=== PATIENT | female | born 1945 | race Two or more races ===

== ENCOUNTER 2023-01-27 09:55 | Outpatient (CLI) | payer OTHER | END 2023-01-27 09:58 | disposition home or self-care (01) | LOC: RAD 09:55 | PROVIDERS: ATTEND Orthopaedic Surgery | DX: M25.552 Pain in left hip (principal); M79.652 Pain in left thigh ==

== ENCOUNTER 2023-02-23 08:48 | Emergency (ER) | payer OTHER ==
[~2023-02-23] VITALS: Ht 165.1 cm; Wt 68.0 kg
[2023-02-23] MEDS ORDERED: LOSARTAN POTASS50 MG PO (09:12)
[2023-02-23] MEDS ORDERED: HYDROCHLOROTH12.5 MG PO (09:13)
[2023-02-23] MEDS ORDERED: PRAMIPEXOLE E2.25 MG (09:14)
[2023-02-23] MEDS ORDERED: ECOTRIN81 MG (09:14)
[2023-02-23] MEDS ORDERED: LYRICA20 MG/1 ML (09:15)
== END 2023-02-23 14:35 | disposition home or self-care (01) ==
LOC: ER 08:48
DX: M16.12 Unilateral primary osteoarthritis, left hip (principal); M54.50 Low back pain, unspecified; Z88.6 Allergy status to analgesic agent; I10 Essential (primary) hypertension

== ENCOUNTER → 2023-02-25 07:13 | Outpatient (CLI) | payer OTHER ==
[~2023-02-25 07:13] MED LIST: ECOTRIN81 MG; HYDROCHLOROTH12.5 MG PO; LOSARTAN POTASS50 MG PO; LYRICA20 MG/1 ML; PRAMIPEXOLE E2.25 MG
== END | disposition home or self-care (01) ==
LOC: LAB 07:13
PROVIDERS: ATTEND Orthopaedic Surgery
DX: M85.9 Disorder of bone density and structure, unspecified (principal); E83.42 Hypomagnesemia; E56.1 Deficiency of vitamin K; E88.89 Other specified metabolic disorders; M81.8 Other osteoporosis without current pathological fracture

== ENCOUNTER 2023-08-03 06:40 | Emergency (ER) | payer OTHER ==
[~2023-08-03] VITALS: Ht 165.1 cm; Wt 68.9 kg
[~2023-08-03 06:40] MED LIST changes: +DICLOFENAC POTA50 MG PO
== END 2023-08-03 12:25 | disposition home or self-care (01) ==
LOC: ER 06:40
DX: M25.552 Pain in left hip (principal); I10 Essential (primary) hypertension; Z88.8 Allergy status to other drugs, medicaments and biological substances; M16.12 Unilateral primary osteoarthritis, left hip
CPT/HCPCS: 73503; 96372; 99284; J1885

== ENCOUNTER → 2023-08-11 06:36 | Outpatient (CLI) | payer OTHER ==
[2023-08-11 07:55] LABS: HEMATOCRIT 31.6 % (36.0-45.00); HEMOGLOBIN 10.1 g/dL (12.0-15.00); MEAN CELL VOLUME 89.2 fL (80.00-100.00); MEAN CORPUSCULAR HEMOGLOBIN 28.5 pg (27.00-32.0); MEAN CORPUSCULAR HGB CONC 31.9 g/dl (32.0-36.0); PLATELET COUNT 317 K/uL (150-450); RED BLOOD COUNT 3.54 M/uL (4.00-6.00); RED CELL DISTRIBUTION WIDTH 15.7 % (11.5-14.5)
[2023-08-11 08:20] LABS: ALBUMIN 3.6 gm/dL (3.4-5.0); CALCIUM 8.9 mg/dL (8.5-10.1); CREATININE SERUM 1.36 mg/dL (0.55-1.02); GFR 37.51; PHOSPHOROUS 2.7 mg/dL (2.5-4.9); POTASSIUM 4.1 mEq/L (3.5-5.1); URIC ACID 6.2 mg/dL (2.5-7.5)
[2023-08-11 08:33] LABS: CREATININE URINE 63.1 MG/DL; URINE PROT QUANT 24HR 5.9 MG/DL
[2023-08-11 08:45] LABS: CREATININE SERUM 1.36 mg/dL (0.6-1.0); URINE PROT QUANT 24 HR 91.45 MG/24HR (42-225)
[2023-08-11 09:45] LABS: PH,URINE 7.5 (5.0-8.0); URINE APPEARANCE Clear; URINE BILIRRUBIN Negative (NEGATIVE); URINE BLOOD Negative; URINE COLOR Yellow; URINE GLUCOSE Negative (NEGATIVE); URINE LEUKOCYTE Small; URINE NITRATE Negative; URINE PROTEIN Negative (NEGATIVE)
[2023-08-11 09:50] LABS: URINE BACTERIA 64.1 uL (0.0-1933); URINE EPITHELIAL CELLS 13.4 uL (0.0-38.8); URINE WBC 7.2 uL (0.0-23.2)
[2023-08-11 10:12] LABS: URINE RBC 1.7 uL (0.0-20.8)
== END | disposition home or self-care (01) ==
LOC: LAB 06:36
DX: E78.5 Hyperlipidemia, unspecified (principal); N18.30 Chronic kidney disease, stage 3 unspecified; E11.21 Type 2 diabetes mellitus with diabetic nephropathy; D63.1 Anemia in chronic kidney disease; N30.00 Acute cystitis without hematuria; E03.9 Hypothyroidism, unspecified; Z88.5 Allergy status to narcotic agent

== ENCOUNTER 2023-08-11 07:27 | Outpatient (CLI) | payer OTHER | END 2023-08-11 07:47 | disposition home or self-care (01) | LOC: RAD 07:27 | PROVIDERS: ATTEND Orthopaedic Surgery | DX: R10.9 Unspecified abdominal pain (principal); M16.12 Unilateral primary osteoarthritis, left hip; N18.30 Chronic kidney disease, stage 3 unspecified; R31.9 Hematuria, unspecified; Z88.5 Allergy status to narcotic agent | CPT/HCPCS: 73721 ==

== ENCOUNTER → 2023-08-23 08:24 | Outpatient (CLI) | payer OTHER ==
[2023-08-23 10:49] LABS: BILIRUBIN TOTAL 0.54 mg/dL (0.3-1.2); BILIRUBIN,CONJUGATED 0.2 mg/dL (0.0-0.2); BILIRUBIN,UNCONJUGATED 0.34 mg/dL (0.0-0.6); FERRITIN 45.2 NG/ML (8-252)
== END | disposition home or self-care (01) ==
LOC: LAB 08:24
PROVIDERS: ATTEND Orthopaedic Surgery
DX: E53.9 Vitamin B deficiency, unspecified (principal); Z88.5 Allergy status to narcotic agent

== ENCOUNTER 2023-10-21 09:26 | Outpatient (CLI) | payer OTHER | END 2023-10-21 09:28 | disposition home or self-care (01) | LOC: NUCLEAR 09:26 | PROVIDERS: ATTEND Orthopaedic Surgery | DX: I73.89 Other specified peripheral vascular diseases (principal) ==

== ENCOUNTER 2023-10-22 08:57 | Outpatient (CLI) | payer OTHER | END 2023-10-22 08:58 | disposition home or self-care (01) | LOC: NUCLEAR 08:57 | PROVIDERS: ATTEND Orthopaedic Surgery | DX: I87.2 Venous insufficiency (chronic) (peripheral) (principal) ==

== ENCOUNTER 2024-02-01 09:26 | Outpatient (CLI) | payer OTHER ==
[2024-02-01 10:42] LABS: URINE BILIRRUBIN Negative (NEGATIVE); URINE BLOOD Negative; URINE COLOR Yellow; URINE GLUCOSE Negative (NEGATIVE); URINE LEUKOCYTE Moderate; URINE NITRATE Negative; URINE PROTEIN Negative (NEGATIVE); URINE UROBILINOGEN 0.2 E.U./dl
[2024-02-01 10:44] LABS: HEMATOCRIT 28.1 % (36.0-45.00); MEAN CELL VOLUME 86.7 fL (80.00-100.00); MEAN CORPUSCULAR HGB CONC 33.9 g/dl (32.0-36.0); PLATELET COUNT 291 K/uL (150-450); RED BLOOD COUNT 3.24 M/uL (4.00-6.00); RED CELL DISTRIBUTION WIDTH 17.2 % (11.5-14.5)
[2024-02-01 10:46] LABS: URINE BACTERIA 527.7 uL (0.0-1933); URINE EPITHELIAL CELLS 32.6 uL (0.0-38.8)
[2024-02-01 10:57] LABS: HEMOGLOBIN 9.5 g/dL (12.0-15.00); MEAN CORPUSCULAR HEMOGLOBIN 29.3 pg (27.00-32.0)
[2024-02-01 11:05] LABS: URINE APPEARANCE CLEAR; URINE RBC 1.7 uL (0.0-20.8)
[2024-02-01 11:17] LABS: ALBUMIN 3.6 gm/dL (3.4-5.0); BILIRUBIN TOTAL 0.45 mg/dL (0.3-1.2); CALCIUM 9.8 mg/dL (8.5-10.1); CREATININE SERUM 1.53 mg/dL (0.55-1.02); GFR 32.66; GLOBULINA 3.4 G/DL (2.4-3.5); MAGNESIUM 2.2 mg/dL (1.8-2.4); POTASSIUM 4.51 mEq/L (3.5-5.1)
[2024-02-02 11:12] LABS: CALCIUM IONIZED 5.2 mg/dL (4.5-5.6)
== END 2024-02-01 09:27 | disposition home or self-care (01) ==
LOC: LAB 09:26
PROVIDERS: ATTEND Orthopaedic Surgery
DX: E55.9 Vitamin D deficiency, unspecified (principal); M85.9 Disorder of bone density and structure, unspecified; E56.1 Deficiency of vitamin K; E21.3 Hyperparathyroidism, unspecified; M81.8 Other osteoporosis without current pathological fracture; N18.30 Chronic kidney disease, stage 3 unspecified; E11.21 Type 2 diabetes mellitus with diabetic nephropathy; D63.1 Anemia in chronic kidney disease; N30.00 Acute cystitis without hematuria; E78.5 Hyperlipidemia, unspecified; E03.9 Hypothyroidism, unspecified

== ENCOUNTER → 2024-02-03 08:16 | Outpatient (CLI) | payer OTHER ==
[2024-02-03 09:05] LABS: URINE PROT QUANT 24HR 6.3 MG/DL
[2024-02-03 09:09] LABS: URINE PROT QUANT 24 HR 114.98 MG/24HR (42-225)
[2024-02-03 09:33] LABS: CREATINE CLEARANCE 38.1 ML/MIN (97-137); CREATININE SERUM 1.4 mg/dL (0.6-1.0)
== END | disposition home or self-care (01) ==
LOC: LAB 08:16
PROVIDERS: ATTEND Specialist/Technologist, Other Nephrology
DX: N18.30 Chronic kidney disease, stage 3 unspecified (principal); E11.21 Type 2 diabetes mellitus with diabetic nephropathy; D63.1 Anemia in chronic kidney disease; N30.00 Acute cystitis without hematuria; E78.5 Hyperlipidemia, unspecified; E03.9 Hypothyroidism, unspecified

== ENCOUNTER 2025-04-02 11:57 | Outpatient (CLI) | payer OTHER ==
[~2025-04-02 11:57] MED LIST changes: +SULINDAC150 MG PO
== END 2025-04-02 11:58 | disposition home or self-care (01) ==
LOC: NUCLEAR 11:57
PROVIDERS: ATTEND Orthopaedic Surgery
DX: M81.0 Age-related osteoporosis without current pathological fracture (principal)

== ENCOUNTER 2025-05-21 09:21 | Outpatient (CLI) | payer OTHER ==
[2025-05-21 09:57] LABS: BASO % 0.6 % (0.1-1.2); EOS # 0.29 (0.04-0.54); EOS % 3.6 % (0.7-7.0); LYMPH # 1.76 (1.18-3.74); LYMPH % 21.6 % (19.3-53.1); MEAN PLATELET VOLUME 8.90 fl (9.4-12.4); MONO # 0.37 (0.24-0.82); MONO % 4.5 % (4.7-12.5); NEUT # 5.66 (1.56-6.13); NEUT % 69.5 % (34.0-71.1); RED CELL DISTRIBUTION WIDTH 14.3 % (11.6-14.4)
[2025-05-21 11:04] LABS: URINE APPEARANCE Clear; URINE BILIRRUBIN Negative (NEGATIVE); URINE BLOOD Negative; URINE COLOR Yellow; URINE GLUCOSE Negative (NEGATIVE); URINE KETONE Negative (NEGATIVE); URINE LEUKOCYTE Large; URINE NITRATE Negative; URINE PROTEIN Negative (NEGATIVE); URINE UROBILINOGEN 1.0 E.U./dl
[2025-05-21 11:08] LABS: URINE BACTERIA 7074.9 uL (0.0-1933); URINE EPITHELIAL CELLS 19.5 uL (0.0-38.8); URINE RBC 3.3 uL (0.0-20.8); URINE WBC 343.5 uL (0.0-23.2)
[2025-05-21 11:28] LABS: ALT/SGPT 19.0 U/L (12-78); AST/SGOT 17.0 U/L (15-37); BILIRUBIN TOTAL 0.49 mg/dL (0.3-1.2); BUN CREA RATIO 6.0 (7.0-25.0); CREATININE SERUM 1.19 mg/dL (0.55-1.02); GFR 43.53; GLOBULINA 4.0 G/DL (2.4-3.5); GLUCOSE FASTING 87.0 mg/dL (65-100); OSMOLALITY SERUM 284.0 MOSM/KG (275-295)
[2025-05-21 11:57] LABS: URINE CAST 0.87 uL (0.0-1.40)
[2025-05-23 11:08] LABS: CALCIUM IONIZED 5.2 mg/dL (4.5-5.6)
== END 2025-05-21 09:26 | disposition home or self-care (01) ==
LOC: LAB 09:21
PROVIDERS: ATTEND Orthopaedic Surgery
DX: E55.9 Vitamin D deficiency, unspecified (principal); M85.9 Disorder of bone density and structure, unspecified; E56.1 Deficiency of vitamin K; E21.3 Hyperparathyroidism, unspecified; E88.9 Metabolic disorder, unspecified; M81.8 Other osteoporosis without current pathological fracture; N18.30 Chronic kidney disease, stage 3 unspecified; E11.21 Type 2 diabetes mellitus with diabetic nephropathy; D63.1 Anemia in chronic kidney disease; N30.00 Acute cystitis without hematuria; E03.9 Hypothyroidism, unspecified